=== PATIENT | female | born 1970 | race Caucasian/White ===

== ENCOUNTER 2022-06-25 20:51 | Emergency (ER) | payer OTHER ==
[~2022-06-25] VITALS: Ht 162.6 cm; Wt 63.5 kg
[2022-06-25] MEDS ORDERED: AMLO-212 PO (22:38)
[2022-06-25] MEDS ORDERED: METF-442 PO (22:38)
--- NOTE | 2022-06-26 01:55 | NUR ---
PATIENT PLACED IN ROOM 1A AT THIS TIME.
[2022-06-26 03:37] LABS: MEAN CORPUSCULAR HEMOGLOBIN 29.3 uug (24.7-32.8); PLATELET COUNT (AUTO) 334 K/uL (179-408)
[2022-06-26 03:39] LABS: CREATININE 1.6 mg/dL (0.6-1.3); POTASSIUM 3.5 mmol/L (3.5-5.1)
[2022-06-26] MEDS ORDERED: SULF1TAB48 PO (04:17)
[2022-06-26] MEDS ORDERED: AMOX-430 PO (04:17)
--- NOTE | 2022-06-26 04:31 | NUR ---
Patient discharged to home in stable condition. Written and verbal after care instructions given. Patient verbalizes understanding of instructions. Stressed follow up or return to ER for worsening s/s. Patient is a/ox4, NAD noted. Patient is able to walk with steady gait
[2022-06-26 06:46] VITALS: BP 128/68
== END 2022-06-26 04:31 | disposition home or self-care (01) ==
LOC: ER 20:51
DX: E11.621 Type 2 diabetes mellitus with foot ulcer (principal); L97.529 Non-pressure chronic ulcer of other part of left foot with unspecified severity; E11.22 Type 2 diabetes mellitus with diabetic chronic kidney disease; N18.9 Chronic kidney disease, unspecified; Z79.84 Long term (current) use of oral hypoglycemic drugs; D64.9 Anemia, unspecified
CPT/HCPCS: 36415; 83735; 85025